=== PATIENT | male | born 1970 | race Caucasian/White ===

== ENCOUNTER 2023-10-10 14:34 | Emergency (ER) | payer BC ==
[~2023-10-10] VITALS: Ht 152.4 cm; Wt 78.9 kg
[2023-10-10 14:39] VITALS: BP_SYST 137; PULSE 88; RESP 17; TEMP 98.3; O2SAT 98
[2023-10-10] MEDS: NACL 0.9% 1,000 ML IV ONE (14:54)
[2023-10-10 15:20] LABS: BASOPHILS % (AUTO) 0.3 % (0.0-2.0); EOSINOPHILS % (AUTO) 0.4 % (0.0-4.0); HEMATOCRIT 40.4 % (36-54); HEMOGLOBIN 13.3 g/dL (14.0-18.0); LYMPHOCYTES # (AUTO) 1.3 K/uL (1.0-5.5); LYMPHOCYTES % (AUTO) 16.5 % (20.5-51.5); MEAN CORPUSCULAR HEMOGLOBIN 24 pg (27-31); MEAN CORPUSCULAR HGB CONC 33 % (32-36); MEAN CORPUSCULAR VOLUME 73 fL (79.0-98.0); MONOCYTES # (AUTO) 0.6 K/uL (0.0-1.0); MONOCYTES % (AUTO) 8.3 % (1.7-9.3); NEUTROPHILS # (AUTO) 5.7 K/uL (1.8-7.7); NEUTROPHILS % (AUTO) 74.5 % (40.0-70.0); PLATELET COUNT (AUTO) 189 K/uL (130-430); RED BLOOD CELL COUNT(AUTO) 5.55 MIL/uL (4.2-6.2); RED CELL DISTRIBUTION WIDTH 14.5 % (9.0-15.0); WHITE BLOOD COUNT (AUTO) 7.7 K/uL (4.8-10.8)
[2023-10-10 15:25] LABS: ANION GAP 4 (5-15); CALCIUM 8.4 mg/dL (8.4-11.0); CARBON DIOXIDE 31 mmol/L (23-29); CHLORIDE 108 mmol/L (98-107); CREATININE 1.17 mg/dL (0.55-1.30); FREE T4 (FREE THYROXINE) 0.8 ng/dl (0.8-1.5); GFR AFRICAN AMERICAN 84 mL/min (>90); GFR NON AFRICAN-AMERICAN 69 mL/min (>90); GLUCOSE 83 mg/dL (74-106); POTASSIUM 3.8 mmol/L (3.5-5.1); SODIUM SERUM 143 mmol/L (136-145); THYROID STIMULATING HORMONE 1.46 uIu/mL (0.36-3.74); UREA NITROGEN, BLOOD 12 mg/dL (8-21)
[2023-10-10 15:41] LABS: BILIRUBIN,URINE NEGATIVE (NEGATIVE); CLARITY/URINE CLEAR (CLEAR); COLOR,URINE YELLOW (YELLOW); GLUCOSE,URINE NEGATIVE (NEGATIVE); KETONES,URINE NEGATIVE (NEGATIVE); LEUKOCYTE ESTERASE ,URINE NEGATIVE (NEGATIVE); NITRITE, URINE NEGATIVE (NEGATIVE); PH,URINE 7.5 (5.0-8.0); PROTEIN URINE NEGATIVE (NEGATIVE); UROBILINOGEN,URINE 0.2 (0.2-1.0)
[2023-10-10 15:46] LABS: BLOOD, URINE TRACE (NEGATIVE)
[2023-10-10 15:47] LABS: BACTERIA,URINE None Seen /HPF (None Seen)
[2023-10-10 16:12] VITALS: BP_SYST 127; PULSE 94; RESP 18; TEMP 97.8; O2SAT 99
[2023-10-10 16:30] LABS: BARBITURATE, URINE NEGATIVE (NEG <=200); BENZODIAZEPINE, URINE NEGATIVE (NEG <=150); CANNABINOID, URINE NEGATIVE (NEG <=50); COCAINE, URINE NEGATIVE (NEG <=150); METHAMPHETAMINES SCREEN,URINE NEGATIVE (NEG <=500); OPIATE, URINE NEGATIVE (NEG <=100); PHENCYCLIDINE SCREEN,URINE NEGATIVE (NEG <=25); URINE AMPHETAMINE NEGATIVE (NEG <=500); URINE METHADONE NEGATIVE (NEG <=200); URINE OXYCODONE SCREEN NEGATIVE (NEG <=100)
[2023-10-10 16:31] LABS: UR TRICYCLIC ANTIDEPRESSANTS NEGATIVE (NEG <=300)
== END 2023-10-10 16:11 | disposition home or self-care (01) ==
LOC: SED 14:34
DX: R00.2 Palpitations (principal); M79.642 Pain in left hand; F41.9 Anxiety disorder, unspecified
CPT/HCPCS: 99285; 96360; 71045; 80307; 80048; 81001; 83880; 84439; 84443; 85025; 84484; 36415; 93005; J7030; 81000; 81015